=== PATIENT | female | born 1985 | race American Indian/Alaskan Native ===

== ENCOUNTER 2016-12-01 12:25 | Outpatient (CLI) | payer OTHER, MEDICARE ==
[2016-12-01 14:39] LABS: Bilirubin,Urine NEG (Negative); Blood,Urine NEG (Negative); Ketones,Urine NEG (Negative); Leukocyte Esterase,Urine SM (Negative); Mucus,Urine FEW /HPF; Nitrite,Urine NEG (Negative); Protein,Urine <15 mg/dL mg/dL (Negative); Urobilinogen,Urine < 2.0 mg/dL (<2.0)
[2016-12-01 14:49] VITALS: BP 123/69
[2016-12-01] MEDS ORDERED: LACTATED RINGERS 500 ML IV ONE (15:00)
== END 2016-12-01 15:00 | disposition home or self-care (01) ==
LOC: TRG 12:25
PROVIDERS: ATTEND Obstetrics & Gynecology
DX: O47.03 False labor before 37 completed weeks of gestation, third trimester (principal); Z3A.33 33 weeks gestation of pregnancy
CPT/HCPCS: 59025; 81001

== ENCOUNTER 2017-01-11 01:39 | Inpatient (IN) | payer OTHER, BC ==
[2017-01-11] MEDS ORDERED: POLYCILLIN/NS 2 GM/100 ML 2 GM/100 ML BAG IV ONE ×2 (02:23→02:38)
[2017-01-11] MEDS ORDERED: LACTATED RINGERS 1,000 ML ONE (02:23)
--- NOTE | 2017-01-11 02:26 | History and Physical Report ---
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 no EDC Calculations LMP: 01/18/2017 EDC Confirmation: 01/18/2017 Past History : 6 Term Births: 1 Premature Births: 1 Living Children: 2 Para: 2 Mult. Births: 0 Prev : 0 Prev. attempt? 0 Aborta: 3 Elect. Ab: 0 Spont. Ab: 3 Ectopics: 0 # 1 Delivery date: 2004 Weeks Gestation: term labor: no Delivery type: Anesthesia type: epidural Sex: Female weight: 6# Comments: increased b/p and anemia # 2 Delivery date: 2005 Weeks Gestation: 8months labor: yes Delivery type: Infant Sex: Female weight: ?? Comments: labor and delivery # 3 Delivery date: 2008 Weeks Gestation: 6-7wks Delivery type: SAB Comments: D&C # 4 Delivery date: 2009 Weeks Gestation: 6-7wks Delivery type: SAB Comments: D&C # 5 Delivery date: 2011 Weeks Gestation: 6-7wks Delivery type: SAB Comments: no D&C Past Medical History: Anxiety Past Surgical History: positive; d&Cx2 D&C: (02/05/2010) Past Medical History Abnormal PAP: positive, 2009, normal since Social Hx: Patient is single Smoking History: Patient has never smoked. occ etoh. no drugs works from home with [employer] Infection History Hx of STD: none HIV Risk Eval: low risk Hepatitis B Risk Eval: low risk Personal hx. of genital herpes: no Partner hx. of genital herpes: no Rash, Viral, or Febrile illness since last LMP? no Varicella/Chicken Pox Status: Previous Disease Genetic History Congenital Heart Defect: Mom: no Dad: no Billy Disease: Mom: no Dad: no Thalassemia Mom: no Dad: no Neural Tube Defect Mom: no Dad: no Down's Syndrome Mom: no Dad: no Aleks-Sachs Mom: no Dad: no Sickle Cell Disease/Trait Mom: no Dad: no Hemophilia Mom: no Dad: no Muscular Dystrophy Mom: no Dad: no Cystic Fibrosis Mom: no Dad: no [place] Chorea Mom: no Dad: no Mental Retardation Mom: no Dad: no Fragile X Mom: no Dad: no Other Genetic/Chromosomal Disorder Mom: no Dad: no Child w/other defect Mom: no Dad: no Enviromental Exposures Xray Exposure: no Medication, drug, or alcohol use since LMP: no Chemical/Other Exposure: no Exposure to Cat Liter: no Hx of Parvovirus (Fifth Disease): no Occupational Exposure to Children: none Current Allergies (reviewed today): No known allergies Past History - Obstetrical History Expected Date of Delivery: 01/18/17 Actual Gestation: 39 Week(s) 2 Day(s) : 6 Para: 2 Hx # Term Pregnancies: 1 Number of Pregnancies: 1 Spontaneous Abortions: 3 Induced : 0 Number of Living Children: 2 Medications and Allergies Allergies Allergy/AdvReac Type Severity Reaction Status Date / Time No Known Allergies Allergy Unverified 06/25/14 08:18 Home Medications Medication Instructions Recorded Confirmed Last Taken Type Vit-Fe Fumar-FA [ 1 tab PO QDAY 01/11/17 01/11/17 01/10/17 History Vitamin] Ibuprofen [Motrin 800 MG tab] 800 mg PO Q8HR PRN #30 tablet 01/12/17 Unknown Rx - Vital Signs Vital signs: Vital Signs Pulse BP 71 129/77 01/11/17 01:50 01/11/17 01:50 Temp Pulse Resp BP Pulse Ox 98.6 F 71 20 129/77 01/11/17 01:55 01/11/17 01:55 01/11/17 01:55 01/11/17 01:55 Results Result Diagrams: 01/11/17 17:57 01/11/17 07:40 All other labs normal. Assessment and Plan - Patient Problems (1) 39 weeks gestation of Status: Acute (2) Active labor Status: Acute Plan to address problem: Admit follow routine labor protocl (3) Group B Streptococcus carrier state affecting Status: Acute
[2017-01-11] MEDS ORDERED: BRETHINE SUB-Q PRN (02:28)
[2017-01-11] MEDS ORDERED: XYLOCAINE 2% INFILTRATI ONE (02:28)
[2017-01-11] MEDS ORDERED: ePHEDrine SULFATE IV PRN ×2 (02:28→04:00)
[2017-01-11] MEDS ORDERED: PHENERGAN PO PRN (02:28)
[2017-01-11] MEDS ORDERED: MINERAL OIL PO PRN (02:28)
[2017-01-11] MEDS ORDERED: BRETHINE IVP PRN (02:28)
[2017-01-11] MEDS ORDERED: STADOL IV PRN (02:28)
[2017-01-11 02:40] LABS: Hematocrit 35.3 % (30.3-42.9); Hemoglobin 11.8 gm/dl (10.1-14.3); Mean Corpuscular HGB Conc 33 % (30-34); Mean Corpuscular Hemoglobin 30 pg (28-32); Mean Corpuscular Volume 89 fl (79-97); Red Blood Count 3.99 M/mm3 (3.65-5.03); Red Cell Distribution Width 14.2 % (13.2-15.2); White Blood Count 6.3 K/mm3 (4.5-11.0)
[2017-01-11] MEDS: LACTATED RINGERS 1,000 ML IV SCH ×2 (02:40→03:17)
[2017-01-11 02:45] LABS: Platelet Count 173 K/mm3 (140-440)
[2017-01-11] MEDS ORDERED: PITOCin/NS 20 UNIT/1000ML DRIP 20 UNITS/1,000 ML BAG IV SCH (03:00)
[2017-01-11] MEDS ORDERED: ePHEDrine SULFATE ONE (03:07)
[2017-01-11] MEDS ORDERED: NARCAN 2 MG/2 ML IV PRN (04:00)
[2017-01-11] MEDS ORDERED: fentaNYL-BUPIV 2 MCG/ML-0.125% 200 MCG/100 ML BAG EPIDURAL SCH (04:00)
--- NOTE | 2017-01-11 04:00 | Anesthesia Consultation ---
Anesthesia Consult and Med Hx Date of service: 01/11/17 - Airway Anesthetic Teeth Evaluation: Good ROM Head & Neck: Adequate Mental/Hyoid Distance: Adequate Intubation Access Assessment: Probably Good - Pre-Operative Health Status ASA Pre-Surgery Classification: ASA2, Emergency Proposed Anesthetic Plan: Epidural, Spinal - Pulmonary Hx Asthma: No COPD: No Hx Pneumonia: No - Cardiovascular System Hx Hypertension: No - Central Nervous System Hx Seizures: No Hx Psychiatric Problems: No - Endocrine Hx Renal Disease: No Hx End Stage Renal Disease: No Hx Hypothyroidism: No Hx Hyperthyroidism: No - Hematic Hx Anemia: Yes (NONE THIS ) Hx Sickle Cell Disease: No - Other Systems Hx Alcohol Use: Yes (OCCASIONALLY)
--- NOTE | 2017-01-11 05:57 | Progress Note ---
Assessment and Plan anticipate delivery Subjective - Subjective Date of service: 01/11/17 (pt resting w/o complaint) Patient reports: movement normal Objective - Vital Signs Vital Signs: Vital Signs - 12hr 01/11/17 01/11/17 01/11/17 01:50 01:55 02:22 Temperature 98.6 F Pulse Rate 71 71 77 Respiratory 20 Rate Blood Pressure 129/77 129/77 138/82 O2 Sat by Pulse Oximetry 01/11/17 01/11/17 01/11/17 02:23 02:28 02:36 Temperature 97.8 F Pulse Rate 82 84 84 Respiratory 20 Rate Blood Pressure 138/82 O2 Sat by Pulse 100 99 Oximetry 01/11/17 01/11/17 01/11/17 02:49 03:14 03:19 Temperature Pulse Rate 70 74 Respiratory 22 Rate Blood Pressure O2 Sat by Pulse 98 97 Oximetry 01/11/17 01/11/17 01/11/17 03:24 03:29 03:32 Temperature Pulse Rate 74 83 82 Respiratory Rate Blood Pressure 160/81 146/69 O2 Sat by Pulse 97 100 Oximetry 01/11/17 01/11/17 01/11/17 03:33 03:34 03:35 Temperature Pulse Rate 85 87 86 Respiratory Rate Blood Pressure 137/70 139/72 O2 Sat by Pulse 99 Oximetry 01/11/17 01/11/17 01/11/17 03:37 03:39 03:40 Temperature Pulse Rate 109 H 103 H 94 H Respiratory Rate Blood Pressure 132/81 175/97 O2 Sat by Pulse 98 Oximetry 01/11/17 01/11/17 01/11/17 03:42 03:43 03:44 Temperature Pulse Rate 88 92 H 93 H Respiratory Rate Blood Pressure 149/69 152/78 O2 Sat by Pulse 99 Oximetry 01/11/17 01/11/17 01/11/17 03:46 03:47 03:49 Temperature Pulse Rate 84 76 80 Respiratory Rate Blood Pressure 147/68 141/73 143/78 O2 Sat by Pulse 98 Oximetry 01/11/17 01/11/17 01/11/17 03:51 03:53 03:54 Temperature Pulse Rate 80 76 82 Respiratory Rate Blood Pressure 145/76 133/73 O2 Sat by Pulse 100 Oximetry 01/11/17 01/11/17 01/11/17 03:55 03:57 03:59 Temperature Pulse Rate 71 73 85 Respiratory Rate Blood Pressure 147/80 139/77 145/77 O2 Sat by Pulse 98 Oximetry 01/11/17 01/11/17 01/11/17 04:01 04:03 04:04 Temperature Pulse Rate 81 75 77 Respiratory Rate Blood Pressure 140/76 128/71 O2 Sat by Pulse 100 Oximetry 01/11/17 01/11/17 01/11/17 04:05 04:07 04:09 Temperature Pulse Rate 75 77 73 Respiratory Rate Blood Pressure 166/78 138/76 128/76 O2 Sat by Pulse 94 99 Oximetry 01/11/17 01/11/17 01/11/17 04:14 04:19 04:24 Temperature 98.2 F Pulse Rate 71 74 72 Respiratory 18 Rate Blood Pressure O2 Sat by Pulse 99 97 98 Oximetry 01/11/17 01/11/17 01/11/17 04:26 04:29 04:34 Temperature Pulse Rate 82 76 78 Respiratory Rate Blood Pressure 127/68 O2 Sat by Pulse 99 99 Oximetry 01/11/17 01/11/17 01/11/17 04:39 04:40 04:44 Temperature Pulse Rate 78 83 74 Respiratory Rate Blood Pressure 125/67 O2 Sat by Pulse 99 98 Oximetry 01/11/17 01/11/17 01/11/17 04:49 04:54 04:55 Temperature Pulse Rate 83 72 78 Respiratory Rate Blood Pressure 133/77 O2 Sat by Pulse 100 97 Oximetry 01/11/17 01/11/17 01/11/17 04:59 05:04 05:09 Temperature Pulse Rate 79 79 81 Respiratory Rate Blood Pressure O2 Sat by Pulse 100 100 98 Oximetry 01/11/17 01/11/17 01/11/17 05:11 05:14 05:19 Temperature Pulse Rate 81 79 76 Respiratory Rate Blood Pressure 136/74 O2 Sat by Pulse 99 100 Oximetry 01/11/17 01/11/17 01/11/17 05:24 05:26 05:29 Temperature Pulse Rate 78 76 72 Respiratory Rate Blood Pressure 148/79 O2 Sat by Pulse 100 100 Oximetry 01/11/17 01/11/17 01/11/17 05:34 05:39 05:40 Temperature Pulse Rate 75 94 H 86 Respiratory Rate Blood Pressure 136/82 O2 Sat by Pulse 99 100 Oximetry 01/11/17 01/11/17 05:44 05:49 Temperature Pulse Rate 80 74 Respiratory Rate Blood Pressure O2 Sat by Pulse 98 100 Oximetry - Exam Breasts: deferred Cardiovascular: Regular rate Lungs: Normal air movement Abdomen: Present: normal appearance, soft. Absent: distention, tenderness Uterus: Present: normal FHR: auscultation normal, category 1 Uterine Contraction Monitor Mode: External Cervical Dilatation: 9 Cervical Effacement Percentage: 100 station: 0 Uterine Contraction Pattern: Regular Uterine Contraction Intensity: Moderate Extremities: normal Deep Tendon Reflex Grade: Normal +2 - Labs Labs: Laboratory Results - last 24 hr 01/11/17 01/11/17 02:10 02:10 WBC 6.3 RBC 3.99 Hgb 11.8 Hct 35.3 MCV 89 MCH 30 MCHC 33 RDW 14.2 Plt Count 173 Blood Type AB POSITIVE Antibody Screen Negative
[2017-01-11] MEDS ORDERED: ADRENALIN ONE (06:04)
[2017-01-11] MEDS ORDERED: POLYCILLIN/NS 1 GM/50 ML 1 GM/50 ML BAG IV SCH (06:29)
[2017-01-11] MEDS ORDERED: ZOFRAN IV PRN (06:52)
[2017-01-11] MEDS ORDERED: TYLENOL PO PRN (06:52)
[2017-01-11] MEDS ORDERED: BENADRYL PO PRN (06:52)
[2017-01-11] MEDS ORDERED: TUCKS PAD TP PRN (06:52)
[2017-01-11] MEDS ORDERED: LANSINOH TP PRN (06:52)
[2017-01-11] MEDS ORDERED: MILK OF MAGNESIA PO PRN (06:52)
[2017-01-11] MEDS ORDERED: DULCOLAX PR PRN (06:52)
[2017-01-11] MEDS ORDERED: NORCO 5/325 PO PRN (06:52)
--- NOTE | 2017-01-11 06:58 | Procedure Note ---
OB Delivery Note - Delivery Date of Delivery: 01/11/17 Automotive Heavy Mechanic: JUNIOR MANNING Estimated blood loss: 500cc - Vaginal Delivery presentation: vertex Delivery position: OA Intrapartum events: none Delivery induction: none Delivery monitor: external FHT, external uterine Route of delivery: Delivery placenta: spontaneous Delivery cord: 3 umbilical vessels Episiotomy: none Delivery laceration: none Anesthesia: epidural Delivery comments: live born female over intact perineum Baby to mom's abdomen skin to skin Placenta and membrane delivered complete and intact 3 vessel cord Pit IVFs 8/9, EBL 300 Wgt 7-10 Mom and baby remain LDR stable. - A at 1 minute: 8 at 5 minutes: 9 Infant Gender: Female (wgt 7-10)
[2017-01-11] MEDS ORDERED: SODIUM CHLORIDE FLUSH SYRINGE 10 ML IV PRN (07:00)
--- NOTE | 2017-01-11 07:15 | Event Note ---
Date: 01/11/17 (pt having some elevated BPs PP) Pt w/o complaint of BAUTISTA, blurred vision, chest pain. BPs 150-130/80-70 1+ pitting edema noted LE bilateral PIH labs ordered.Will monitor.
[2017-01-11 07:54] LABS: Hematocrit 40.4 % (30.3-42.9); Hemoglobin 13.3 gm/dl (10.1-14.3)
[2017-01-11 07:57] LABS: Bacteria,Urine 1+ /HPF (Negative); Bilirubin,Urine NEG (Negative); Blood,Urine LG (Negative); Ketones,Urine NEG (Negative); Leukocyte Esterase,Urine NEG (Negative); Nitrite,Urine NEG (Negative); Protein,Urine <15 mg/dL mg/dL (Negative); Urobilinogen,Urine < 2.0 mg/dL (<2.0)
[2017-01-11 08:12] LABS: Alanine Aminotransferase 11 units/L (7-56); Lactate Dehydrogenase 261 units/L (91-180); Uric Acid 4.5 mg/dL (3.5-7.6)
[2017-01-11] MEDS ORDERED: PRENATAL VITAMIN PO SCH (10:00)
[2017-01-11] MEDS: COLACE PO SCH ×2 (10:55→21:39)
--- NOTE | 2017-01-11 17:20 | Progress Note ---
Subjective Date of service: 01/11/17 Interval history: 1st day after normal vaginal delivery Patient is in the bed, comfortable. Pain is well controlled with pain meds. Ambulated well. No residual neurological deficit. No headache. No anesthesia complications Objective - Constitutional Vitals: Vital Signs - 12hr 01/11/17 01/11/17 01/11/17 05:24 05:26 05:29 Temperature Pulse Rate 78 76 72 Respiratory Rate Blood Pressure 148/79 O2 Sat by Pulse 100 100 Oximetry 01/11/17 01/11/17 01/11/17 05:34 05:39 05:40 Temperature Pulse Rate 75 94 H 86 Respiratory Rate Blood Pressure 136/82 O2 Sat by Pulse 99 100 Oximetry 01/11/17 01/11/17 01/11/17 05:44 05:49 05:54 Temperature Pulse Rate 80 74 78 Respiratory Rate Blood Pressure O2 Sat by Pulse 98 100 100 Oximetry 01/11/17 01/11/17 01/11/17 05:55 05:59 06:03 Temperature Pulse Rate 85 95 H 88 Respiratory Rate Blood Pressure 156/85 143/80 O2 Sat by Pulse 99 Oximetry 01/11/17 01/11/17 01/11/17 06:20 06:22 06:42 Temperature 97.8 F Pulse Rate 82 90 Respiratory 18 Rate Blood Pressure 130/71 151/63 O2 Sat by Pulse Oximetry 01/11/17 01/11/17 01/11/17 06:46 06:47 06:51 Temperature Pulse Rate 94 H 105 H 93 H Respiratory Rate Blood Pressure O2 Sat by Pulse 100 59 L 100 Oximetry 01/11/17 01/11/17 01/11/17 06:53 06:56 07:01 Temperature Pulse Rate 95 H 78 Respiratory Rate Blood Pressure O2 Sat by Pulse 88 62 L 100 Oximetry 01/11/17 01/11/17 01/11/17 07:04 07:06 07:13 Temperature Pulse Rate 88 79 Respiratory Rate Blood Pressure 150/83 O2 Sat by Pulse 85 100 Oximetry 01/11/17 01/11/17 01/11/17 07:24 07:25 07:29 Temperature Pulse Rate 88 78 76 Respiratory Rate Blood Pressure 134/68 O2 Sat by Pulse 100 100 Oximetry 01/11/17 01/11/17 01/11/17 07:34 07:42 07:49 Temperature Pulse Rate 76 80 77 Respiratory Rate Blood Pressure 129/67 O2 Sat by Pulse 85 100 Oximetry - Labs CBC & Chem 7: 01/11/17 07:40 01/11/17 07:40 Labs: Abnormal lab results 01/11/17 Range/Units 07:40 Lactate Dehydrogenase 261 H (91-180) units/L
[2017-01-11] MEDS: MOTRIN PO SCH ×2 (18:06→23:47)
[2017-01-11 18:18] LABS: Hematocrit 31.6 % (30.3-42.9); Hemoglobin 10.5 gm/dl (10.1-14.3)
[2017-01-12] MEDS: MOTRIN PO SCH (05:02)
[2017-01-12] MEDS ORDERED: BOOSTRIX IM ONE (06:00)
[2017-01-12] MEDS ORDERED: M-M-R II VACCINE SUB-Q ONE (06:52)
--- NOTE | 2017-01-12 08:37 | Progress Note ---
Assessment and Plan patient doing well, no complaints. desires d/c home today. lochia scant, VSSAF (except one outlier 159/77), no BAUTISTA, visual changes or epigastric pain, H&H 10.5/ 31.6. plan for d/c home w/ f/u 1 wk in office. - Patient Problems (1) Elevated blood pressure reading Current Visit: Yes Status: Acute Plan to address problem: labs normal b/ps NL except one outlier 159/77 asymptomatic plan for d/c home w/ 1 week follow up in office for b/p check. (2) Spontaneous vaginal delivery Current Visit: Yes Status: Acute Subjective - Subjective Date of service: 01/12/17 Principal diagnosis: day #1 s/p Patient reports: appetite normal, voiding normally, pain well controlled, ambulating normally, no dizzy ambulation, no nauseated : doing well, nursing well Objective - Vital Signs Latest vital signs: Vital Signs Temp Pulse Resp BP 01/12/17 04:00 98.3 F 83 20 127/76 01/12/17 00:30 98.1 F 100 H 20 127/75 01/11/17 20:15 97.9 F 103 H 20 135/72 01/11/17 16:40 97.6 F 90 19 159/77 Intake and Output 01/11/17 01/12/17 01/12/17 22:59 06:59 14:59 Intake Total 360 480 Balance 360 480 Intake: Oral 360 480 Other: Total, Intake Amount 240 240 # Voids Void 1 1 - Exam Breasts: Present: normal, Cardiovascular: Present: Regular rate Lungs: Present: Clear to auscultation, Normal air movement Abdomen: Present: normal appearance, soft Vulva: both: normal Uterus: Present: normal, firm, fundal height at umbilicus Extremities: Present: normal Deep Tendon Reflex Grade: Normal +2
--- NOTE | 2017-01-12 08:39 | Discharge Summary ---
Providers - Providers Date of Admission: 01/11/17 02:08 Date of discharge: 01/12/17 (desires d/c home) Attending physician: BRENT MEANS Primary care physician: BRENT MEANS Hospitalization Reason for admission: active labor Delivery: Episiotomy: none Laceration: none Other procedures: none complications: none Discharge diagnosis: IUP at term delivered baby: female Hospital course: uncomplicated vaginal Condition at discharge: Good Disposition: DC-01 TO HOME OR SELFCARE - Discharge Diagnoses (1) Elevated blood pressure reading Status: Acute (2) Spontaneous vaginal delivery Status: Acute Plan - Discharge Medications Prescriptions: Ibuprofen [Motrin 800 MG tab] 800 mg PO Q8HR PRN #30 tablet PRN Reason: Pain - Provider Discharge Summary Activity: routine, no sex for 6 weeks, no heavy lifting 4 weeks, no strenuous exercise Diet: routine Instructions: routine Additional instructions: [] Smoking cessation referral if applicable(refer to patient education folder for contact #) [] Refer to [facility] Booklet Call your doctor immediately for: * Fever > 100.5 * Heavy vaginal bleeding ( >1 pad per hour) * Severe persistent headache * Shortness of breath * Reddened, hot, painful area to leg or breast * Drainage or odor from incision. * Keep incision clean and dry at all times and follow doctor's instructions regarding bathing/showering - Follow up plan Follow up: BRENT MEANS MD [Primary Care Provider] - 7 Days (Congratulations! Please call [phone] to schedule your blood pressure check in 1 week. Call for any questions or concerns. )
--- NOTE | 2017-01-12 09:49 | Progress Note ---
Subjective Date of service: 01/12/17 Principal diagnosis: day #1 s/p Interval history: Patient seen, satisfied with anesthesia provided, ambulating, some residual soreness at site of epidural. Objective - Constitutional Vitals: Vital Signs - 12hr 01/12/17 01/12/17 01/12/17 00:30 04:00 09:23 Temperature 98.1 F 98.3 F 98.5 F Pulse Rate 100 H 83 87 Respiratory 20 20 20 Rate Blood Pressure 127/75 127/76 154/87 - Labs CBC & Chem 7: 01/11/17 17:57 01/11/17 07:40
[2017-01-12 11:16] VITALS: BP 125/79
== END 2017-01-12 12:00 | disposition home or self-care (01) | DRG 775 ==
LOC: TRG 01:39 → LD 02:08 → OB 08:18
PROVIDERS: ADMIT Obstetrics & Gynecology; ATTEND Obstetrics & Gynecology
PROC: 10E0XZZ Delivery of Products of Conception, External Approach (ICD-10-PCS; principal; 2017-01-11)
PROC: 3E0S3CZ (ICD-10-PCS; 2017-01-11)
PROC: 00HU33Z Insertion of Infusion Device into Spinal Canal, Percutaneous Approach (ICD-10-PCS; 2017-01-11)
PROC: 3E0234Z Introduction of Serum, Toxoid and Vaccine into Muscle, Percutaneous Approach (ICD-10-PCS; 2017-01-12)
DX: O99.824 Streptococcus B carrier state complicating childbirth (principal); O99.344 Other mental disorders complicating childbirth; F41.9 Anxiety disorder, unspecified; H53.8 Other visual disturbances; O75.89 Other specified complications of labor and delivery; Z72.89 Other problems related to lifestyle; Z37.0 Single live birth; Z3A.39 39 weeks gestation of pregnancy; Z23 Encounter for immunization
CPT/HCPCS: 36415; 81001; 82565; 83615; 84450; 84460; 84550; 85014; 85018; 85027; 86592; 86850; 86900; 86901; 90471; 90715; 99211; G0463; J0171; J0290; J0595; J2590; J7120